=== PATIENT | female | born 1945 | race Caucasian/White ===

== ENCOUNTER → 2019-12-20 | Outpatient (CLI) | payer MEDICARE ==
[2019-12-20 14:07] LABS: CHLORIDE 105 mmol/L (98-107)
[2019-12-20 14:32] LABS: CALCIUM 9.9 mg/dL (8.5-10.1)
[2019-12-20 15:08] LABS: ALANINE AMINOTRANSFERASE 21 U/L (12-78); ALKALINE PHOSPHATASE 72 U/L (45-117); BILIRUBIN,TOTAL 0.8 mg/dL (0.2-1.0); HDL CHOLESTEROL (DIRECT) 99 mg/dL (40-60); TOTAL PROTEIN 8.3 g/dL (6.4-8.2)
[2019-12-20 15:25] LABS: ANION GAP 9 mmol/L (5-15); CHOL/HDL RATIO 2.3; CHOLESTEROL, TOTAL 224 mg/dL (140-239); CREATININE 1.04 mg/dL (0.55-1.02); HDL CHOL % 44 % (28-40); LDL CHOLESTEROL,CALCULATED 105 mg/dL (54-169); LDL/HDL RATIO 1.1 (0.5-3.0); TRIGLYCERIDES 100 mg/dL (50-200); VLDL CHOLESTEROL 20 mg/dL (0-25)
== END | disposition home or self-care (01) ==
LOC: CFH 10:32
PROVIDERS: ATTEND Internal Medicine Cardiovascular Disease
DX: I10 Essential (primary) hypertension (principal); I77.9 Disorder of arteries and arterioles, unspecified; R94.31 Abnormal electrocardiogram [ECG] [EKG]; E78.00 Pure hypercholesterolemia, unspecified; G62.9 Polyneuropathy, unspecified
CPT/HCPCS: 36415; 80053; 80061

== ENCOUNTER → 2020-11-19 | Outpatient (CLI) | payer MEDICARE ==
[~2020-11-19] MED LIST: SINCALIDE (KINEVAC) 5 MCG ONE
== END | disposition home or self-care (01) ==
LOC: RAD 12:30
PROVIDERS: ATTEND Internal Medicine
DX: R10.11 Right upper quadrant pain (principal)
CPT/HCPCS: 78227; A9537; J2805